=== PATIENT | female | born 1940 | race Caucasian/White ===

== ENCOUNTER → 2020-11-14 | Emergency (ER) | payer MEDICARE, MEDICAID ==
[~2020-11-14] VITALS: Ht 160 cm; Wt 63.6 kg
[2020-11-14 14:52] VITALS: BP 145/69
== END | disposition home or self-care (01) ==
LOC: EMS 12:37
DX: M25.562 Pain in left knee (principal); Z53.21 Procedure and treatment not carried out due to patient leaving prior to being seen by health care provider